=== PATIENT | male | born 1995 | race Caucasian/White ===

== ENCOUNTER 2020-04-30 03:03 | Emergency (ER) | payer OTHER ==
[~2020-04-30] VITALS: Ht 188 cm; Wt 102.0 kg
--- NOTE | 2020-04-30 03:20 | NUR ---
While working at home developed chest tightness and sob, non radiating, "made it hard to take deep breathe", worse with movement, inspiration.
--- NOTE | 2020-04-30 03:22 | NUR ---
No risk factors, no smoking, no medications, no drug use, no alcohol, no family hx cardiac issues. No recent illness, no fever, no n/v/d, no cough. POC: labs/xray per dr saravia.
--- NOTE | 2020-04-30 03:25 | NUR ---
Monitor shows NSR, no ectopy, no ST elevation, no prolonged qt. Will continue to monitor. No pain at this time. AIDET provided.
--- NOTE | 2020-04-30 03:30 | NUR ---
Lab here to draw blood.
--- NOTE | 2020-04-30 03:41 | NUR ---
To xray for PA/Lateral CXR.
[2020-04-30 03:47] LABS: BASOPHILS % (AUTO) 1 % (0-1); EOSINOPHILS % (AUTO) 2 % (1-7); LYMPHOCYTES % (AUTO) 36 % (22-44); MEAN CORPUSCULAR HEMOGLOBIN 30.6 pg (27.5-34.5); MEAN CORPUSCULAR HGB CONC 35.3 g/dL (33.2-36.2); MEAN PLATELET VOLUME 7.5 fL (7.4-10.4); MONOCYTES % (AUTO) 8 % (2-9); NEUTROPHILS % (AUTO) 54 % (42-75); PLATELET COUNT 270 x10^3/uL (130-400); RED BLOOD COUNT 4.96 x10^6/uL (4.38-5.82); RED CELL DISTRIBUTION WIDTH 12.9 % (9.4-14.8)
[2020-04-30 03:49] LABS: MD NO
--- NOTE | 2020-04-30 03:51 | NUR ---
Back from xray, dull-aching mid sternal cp, non radiating, worse with inspiration/deep breathing, no n/v. On monitor NSR no ectopy, no ST elevation. Will continue to monitor. AIDET provided.
[2020-04-30 03:54] LABS: ALBUMIN 4.1 g/dL (3.4-5.0); CALCIUM 8.9 mg/dL (8.5-10.1); CREATININE 1.04 mg/dL (0.7-1.3)
[2020-04-30 03:58] LABS: TROPONIN I < 0.015 ng/mL (0.000-0.045)
[2020-04-30 04:02] LABS: ANION GAP 5 mmol/L (5-15); CHLORIDE 107 mmol/L (98-107)
[2020-04-30 04:28] VITALS: BP 135/79
== END 2020-04-30 04:56 | disposition home or self-care (01) ==
LOC: ED 04:00
DX: R07.89 Other chest pain (principal); M94.0 Chondrocostal junction syndrome [Tietze]; R09.1 Pleurisy
CPT/HCPCS: 36415; 71046; 80048; 82040; 84484; 85025; 85379; 93005; 99285

== ENCOUNTER 2020-08-19 20:54 | Emergency (ER) | payer OTHER ==
[~2020-08-19] VITALS: Ht 188 cm; Wt 101.3 kg
[2020-08-19] MEDS ORDERED: ACETAMINOPHEN 500 MG TABLET ONE (21:06)
--- NOTE | 2020-08-19 21:07 | NUR ---
Pt with productive cough, sob, difficulty breathing and fever. Medicated with 1000mg tylenol. Waiting to see provider.
--- NOTE | 2020-08-19 21:24 | NUR ---
PCXR done, IV with x 1 set bc and labs drawn and sent, audio visual tech with 2nd bc. IVF infusing wide open, pt on monitor, pulse ox, urinal with pt, rails up. GF at bedside. Call sal, AIDET provided. WIll continue to monitor.
[2020-08-19] MEDS ORDERED: ACETAMINOPHEN 500 MG TABLET PO ONE (21:30)
[2020-08-19] MEDS ORDERED: SODIUM CHLORIDE 0.9% 1,000ML IVBOLUS ONE (21:30)
[2020-08-19] MEDS ORDERED: SODIUM CHLORIDE FLUSH 10ML SYR IVF ONE (21:30)
[2020-08-19 21:31] LABS: BASOPHILS % (AUTO) 0 % (0-1); EOSINOPHILS % (AUTO) 0 % (1-7); LYMPHOCYTES % (AUTO) 13 % (22-44); MEAN CORPUSCULAR HEMOGLOBIN 30.3 pg (27.5-34.5); MEAN CORPUSCULAR HGB CONC 35.1 g/dL (33.2-36.2); MEAN PLATELET VOLUME 7.6 fL (7.4-10.4); MONOCYTES % (AUTO) 7 % (2-9); NEUTROPHILS % (AUTO) 80 % (42-75); PLATELET COUNT 246 x10^3/uL (130-400); RED BLOOD COUNT 5.09 x10^6/uL (4.38-5.82); RED CELL DISTRIBUTION WIDTH 12.8 % (9.4-14.8)
[2020-08-19 21:33] LABS: MD NO
[2020-08-19 21:41] LABS: ALANINE AMINOTRANSFERASE 69 U/L (12-78); ANION GAP 8 mmol/L (5-15); CHLORIDE 98 mmol/L (98-107); CREATININE 1.22 mg/dL (0.7-1.3)
[2020-08-19 21:43] LABS: ALKALINE PHOSPHATASE 62 U/L (45-117); BILIRUBIN,TOTAL 0.9 mg/dL (0.2-1.0); TOTAL PROTEIN 8.6 g/dL (6.4-8.2)
[2020-08-19] MEDS ORDERED: KETOROLAC 30 MG/1 ML IVPush ONE (22:00)
[2020-08-19] MEDS ORDERED: ONDANSETRON 2MG/ML, 2ML IVPush ONE (22:00)
[2020-08-19] MEDS ORDERED: ONDANSETRON 2MG/ML, 2ML ONE (22:01)
[2020-08-19] MEDS ORDERED: KETOROLAC 30 MG/1 ML ONE (22:01)
--- NOTE | 2020-08-19 22:06 | NUR ---
Medicated per order, HR improving still with fever. Will continue to monitor, no urinary output yet.
--- NOTE | 2020-08-19 22:58 | NUR ---
Covid swab collected and sent by bel ALONSO.
[2020-08-19 23:09] VITALS: BP 105/44
--- NOTE | 2020-08-19 23:10 | NUR ---
Pt girlfriend concerned about b/p; trending systolic 100/44. HR improved 98 sinus. Pt feeling better, reassurance to girlfriend. Waiting for ERP re-evaluation.
--- NOTE | 2020-08-19 23:13 | NUR ---
Pt tolerating po fluids. To be dc.
== END 2020-08-19 23:40 | disposition home or self-care (01) ==
LOC: ED 23:30
DX: U07.1 COVID-19 (principal); J06.9 Acute upper respiratory infection, unspecified; R51.9 Headache, unspecified; R19.7 Diarrhea, unspecified; R07.89 Other chest pain; R50.9 Fever, unspecified; R05 Cough; R00.0 Tachycardia, unspecified; M79.10 Myalgia, unspecified site
CPT/HCPCS: 36415; 71045; 80053; 83605; 84145; 85025; 87040; 93005; 96374; 96375; 99285; J1885; J2405; J7030; U0003

== ENCOUNTER 2020-08-20 18:06 | Emergency (ER) | payer OTHER ==
[~2020-08-20] VITALS: Ht 188 cm; Wt 101.0 kg
[2020-08-20] MEDS ORDERED: SODIUM CHLORIDE 0.9%, 500ML IVBOLUS ONE (19:00)
[2020-08-20] MEDS ORDERED: KETOROLAC 30 MG/1 ML IVPush ONE (19:00)
--- NOTE | 2020-08-20 19:02 | NUR ---
Report received from ANA Mercado. This RN to assume care.
[2020-08-20] MEDS ORDERED: KETOROLAC 30 MG/1 ML ONE (19:06)
[2020-08-20 19:32] VITALS: BP 108/65
[2020-08-20 19:43] LABS: BASOPHILS % (AUTO) 0 % (0-1); EOSINOPHILS % (AUTO) 0 % (1-7); LYMPHOCYTES % (AUTO) 14 % (22-44); MEAN CORPUSCULAR HEMOGLOBIN 30.2 pg (27.5-34.5); MEAN CORPUSCULAR HGB CONC 34.8 g/dL (33.2-36.2); MEAN PLATELET VOLUME 7.7 fL (7.4-10.4); MONOCYTES % (AUTO) 7 % (2-9); NEUTROPHILS % (AUTO) 78 % (42-75); PLATELET COUNT 207 x10^3/uL (130-400); RED BLOOD COUNT 4.75 x10^6/uL (4.38-5.82); RED CELL DISTRIBUTION WIDTH 12.6 % (9.4-14.8)
[2020-08-20 19:44] LABS: MD NO
[2020-08-20 19:55] LABS: D-DIMER (DIC) 0.29 ug/mlFEU (0.00-0.52); PROTIME 11.5 Seconds (9.6-11.5)
[2020-08-20 20:00] LABS: C-REACTIVE PROTEIN, QUANT 7.3 mg/dL (0.02-0.49)
[2020-08-20] MEDS ORDERED: OMNIPAQUE 350 MG/ML, 100ML BOTTLE ONE (20:05)
--- NOTE | 2020-08-20 20:44 | NUR ---
Discharge instructions given. All questions and concerns addressed. Patient ambulatory with a steady gait. Belongings with patient.
== END 2020-08-20 20:46 | disposition home or self-care (01) ==
LOC: ED 19:30
DX: U07.1 COVID-19 (principal); J12.82 Pneumonia due to coronavirus disease 2019; B34.9 Viral infection, unspecified; R50.9 Fever, unspecified; R05 Cough; R07.89 Other chest pain; R51.9 Headache, unspecified; R11.2 Nausea with vomiting, unspecified; R53.1 Weakness; R06.02 Shortness of breath; M79.10 Myalgia, unspecified site
CPT/HCPCS: 36415; 71275; 82550; 82728; 83615; 85025; 85049; 85379; 85384; 85610; 85730; 86140; 96374; 99285; J1885; J7040; Q9967

== ENCOUNTER 2020-08-21 09:38 | Emergency (ER) | payer OTHER ==
[~2020-08-21] VITALS: Ht 188 cm; Wt 100.8 kg
[2020-08-21 10:35] VITALS: BP 112/63
[2020-08-21] MEDS ORDERED: ALBUTEROL/IPRATROPIUM 2.5MG/0.5MG, 3 ML ONE (10:46)
--- NOTE | 2020-08-21 10:57 | NUR ---
MD OSMAN IN ROOM FOR PT UPDATE, ALL QUESTIONS ANSWERED
[2020-08-21] MEDS ORDERED: ALBUTEROL/IPRATROPIUM 2.5MG/0.5MG, 3 ML NPPB ONE (11:00)
--- NOTE | 2020-08-21 11:27 | NUR ---
Breathing treatment completed, pt reports ease of breathing after treatment
== END 2020-08-21 12:20 | disposition home or self-care (01) ==
LOC: ED 10:05
DX: J18.9 Pneumonia, unspecified organism (principal); B34.9 Viral infection, unspecified; R06.00 Dyspnea, unspecified; R50.9 Fever, unspecified; R19.7 Diarrhea, unspecified; R09.81 Nasal congestion; R00.0 Tachycardia, unspecified
CPT/HCPCS: 93005; 94640; 99283

== ENCOUNTER 2020-08-22 08:10 | Emergency (ER) | payer OTHER ==
[~2020-08-22] VITALS: Ht 188 cm; Wt 98.9 kg
[2020-08-22] MEDS ORDERED: ACETAMINOPHEN 500 MG TABLET ONE (08:52)
[2020-08-22] MEDS ORDERED: ACETAMINOPHEN 500 MG TABLET PO ONE (09:00)
--- NOTE | 2020-08-22 09:45 | NUR ---
TASK RN: PT AMBULATED W/ SPO2 MONITOR. PT MAINAINED 91-94% RA WHILE AMBULATING.
[2020-08-22 10:15] VITALS: BP 108/63
--- NOTE | 2020-08-22 10:21 | NUR ---
PT REC'VD DISCHARGE INSTRUCTIONS AND EDUCATION. PT HAD NO FURTHER QUESTIONS. PT AMBULATED TO DC AREA, STEADY GAIT.
== END 2020-08-22 10:29 | disposition home or self-care (01) ==
LOC: ED 08:35
DX: J18.9 Pneumonia, unspecified organism (principal); B34.9 Viral infection, unspecified; R94.31 Abnormal electrocardiogram [ECG] [EKG]
CPT/HCPCS: 71045; 93005; 99283